=== PATIENT | female | born 1945 | race Caucasian/White ===

== ENCOUNTER 2018-12-24 17:00 | Emergency (ER) | payer MEDICARE, SELFPAY ==
[2018-12-24 17:01] VITALS: BP 127/69; PULSE 71; RESP 17; TEMP 36.7; O2SAT 99; BMI 26.6
--- NOTE | 2018-12-24 17:04 | RAD_ITS ---
STUDY: X-RAY - LEFT HIP REASON FOR EXAM: Female, 73 years old. Left hip, buttock pain TECHNIQUE: 2 views of the hip. COMPARISON: None. FINDINGS: There is a comminuted acute fracture of the left inferior pubic ramus. There are small left femoral osteophytes. There is significant right hip joint space and subchondral sclerosis within the femoral head and osteophyte formation. There are no fractures of either hip. Normal femoral head, neck, intertrochanteric region and visualized proximal femur. Normal acetabulum. Normal hip joint. Normal visualized superior and inferior pubic rami and ischial tuberosities. RAD/Hip Min 2 Views (Portable) IMPRESSION: Acute comminuted fracture left inferior pubic ramus Mild osteoarthrosis left hip no acute fractures Significant osteoarthrosis right hip, subchondral sclerosis femoral head degenerative, and/or AVN, further evaluation with MRI could be performed Electronically Signed: Jose Elias Escalona, at 17:51 EST Tel , Service support ,
--- NOTE | 2018-12-24 18:19 | ED.VISSUMM ---
- ER Visit Summary Date of Service: 12/24/18 Chief Complaint: Fall History of Present Illness: The patient is a 73 F who sees Varsha Armstrong. She reports that at work today rug slipped out from under her and she fell onto her left side. She reports he has left hip pain is 10-10 severity. Increased with movement. She denies any blow to the head or loss of consciousness. No neck, back, shoulder, wrist, or hip pain on the right. Physical Examination: Vitals: Stable. Afebrile. Neck: No vertebral tenderness. Full ROM without difficulty. Cleared by NEXUS criteria. Back: No vertebral tenderness. General: A&O x 3. NAD. Cardiovascular exam: Regular rate and rhythm, no murmur, rub or gallop. Respiratory exam: Chest nontender. No crepitus. Clear to auscultation bilaterally. No wheezes or stridor. Abdominal exam: Soft, nontender, nondistended, normal bowel sounds. No pain in RUQ or LUQ specifically. No peritoneal signs. Extremity: Mild tenderness palpation over the left greater trochanter. Moderate to palpation in the left inguinal region. She does have pain with internal/external rotation of her hip. Test Results: Left hip x-ray shows a inferior pubic ramus fracture on the left. There is no femoral neck fracture. Emergency Department Course and Treatment: Patient was treated with [place] and crutches. She is resting comfortably. Treatment Plan: Patient will be discharged with crutches, [place], and Colace. Weightbearing as tolerated. Follow-up with Dr. Amaro in 1 week for another exam. Return to the emergency department for any worsening symptoms. Disposition: To home in improved and stable condition. Impression: 1. Fall. 2. Left inferior pubic ramus fracture. This note was generated with [employer] dictation software. It may contain incorrect words, spelling, and punctuation that were not noted in review of the chart prior to signing ED Disposition - Plan for ED Patient: Disposition: Home or Assisted Living Instructions: ED Fx Pelvis Prescriptions: Hydrocodone Bitart/Apap 5-325 [[place] 5MG-325MG] 1 tablet PO Q6H PRN PRN 3 Days #20 tablet PRN Reason: Pain Docusate Sodium [Colace] 100 mg PO DAILY #20 capsule Referrals: Sebastien Amaro DO [STAFF PHYSICIAN] - 1 Week Additional Instructions: You broke your left inferior pubic ramus.
[2018-12-24] MEDS: HYDROcodone Bitartrate/Apap 5/325 Tablet PO (19:08)
== END 2018-12-24 19:21 | disposition home or self-care (01) ==
LOC: ED 18:38
PROVIDERS: Emergency Provider Emergency Medicine; Family Provider Nurse Practitioner Primary Care; PCP Nurse Practitioner Primary Care
DX: S32.592A Other specified fracture of left pubis, initial encounter for closed fracture (principal); W18.39XA Other fall on same level, initial encounter; Y93.9 Activity, unspecified; Y92.9 Unspecified place or not applicable; Y99.0 Civilian activity done for income or pay
CPT/HCPCS: 73502; 99283

== ENCOUNTER → 2024-07-19 | Outpatient (CLI) | payer MEDICARE, SELFPAY ==
--- NOTE | 2024-07-19 11:50 | RAD_ITS ---
EXAM: XR RIGHT HIP WITH PELVIS WHEN PERFORMED, 2 OR 3 VIEWS CLINICAL INDICATION: Hip pain. TECHNIQUE: Two or three views of the right hip with pelvis when performed. COMPARISON: 12/24/2018. FINDINGS: BONES/JOINTS: Severe right and mild left hip joint arthrosis, progressed since prior examination particularly on the right. There is right hip joint space narrowing and subcortical cystic changes as well as cortical sclerosis and aspherical morphology. Degenerative changes in the lower lumbar spine and bilateral SI joints. Healed left inferior pubic ramus fracture correlating with prior examination. No widening of the pubic symphysis. SOFT TISSUES: No significant abnormality. No soft tissue swelling or gas. RAD/HIP, UNI W/ Pelvis 2-3 Views IMPRESSION: 1. Severe right and mild left hip joint arthrosis, progressed since prior examination particularly on the right. Cannot exclude associated AVN. 2. Healed left inferior pubic ramus fracture correlating with prior examination. Electronically Signed: Sina Xie DO at 22:05 EDT ,
== END | disposition home or self-care (01) ==
PROVIDERS: PCP Nurse Practitioner Primary Care; Referring Provider Chiropractor; Visit Provider Chiropractor
DX: S76.011A Strain of muscle, fascia and tendon of right hip, initial encounter (principal)
CPT/HCPCS: 73502

== ENCOUNTER 2024-09-16 06:38 | Day surgery (SDC) | payer MEDICARE, SELFPAY ==
--- NOTE | 2024-08-20 12:29 | EKG12_ITS ---
Test Reason : PREOP Blood Pressure : / mmHG Vent. Rate : 067 BPM Atrial Rate : 067 BPM P-R Int : 154 ms QRS Dur : 118 ms QT Int : 440 ms P-R-T Axes : 073 -26 061 degrees QTc Int : 464 ms Normal sinus rhythm Septal infarct , age undetermined Abnormal ECG Confirmed by CAROLEE VAN, TOSHIA ([id number]), subeditor CARLY BUSTOS ([id number]) on 08/21/2024 10:11:03 AM Referred By: Henok Baldwin Confirmed By:TOSHIA ZARCO MD
[2024-08-20 13:20] LABS: Absolute Lymphocyte Count 1.52 X10^3/uL (0.83-4.51); Basophil# 0.06 X10^3/uL; Basophil% 0.8 % (0-1); Eosinophil# 0.13 X10^3/uL; Eosinophils% 1.8 % (0-5); Hematocrit 37.8 % (37-47); Hemoglobin 12.2 g/dL (12.0-15.0); Lymphocyte # 1.52 X10^3/ul (0.83-4.51); Mean Corp Hgb Conc 32.3 g/dL (32-36); Mean Corpuscular Hgb 30.2 pg (27.0-32.0); Mean Corpuscular Volume 93.6 fL (81-99); Mean Platelet Vol. 9.2 fl (6.2-12.0); Monocyte# 0.55 X10^3/uL; Monocyte% 7.6 % (0-10); NRBC Flagged by Analyzer 0 % (0-5); Neutrophil # 4.96 X10^3/uL (2.7-7.7); Neutrophil % 68.5 % (47-70); Platelet Count 315 K/mm3 (150-450); RBC Distribution Width CV 13.5 % (11.6-14.6); RBC Distribution Width SD 46.4 fl (35.1-43.9); Red Blood Count 4.04 M/mm3 (4.2-5.4); White Blood Count 7.2 K/mm3 (4.4-11.0)
[2024-08-20 14:00] LABS: Albumin, Serum 3.6 g/dL (3.2-5.0); Anion Gap 4 (5-15); BUN 17 mg/dL (7-18); BUN/Creat Ratio 20.1 RATIO (10-20); Calcium,Total 9.1 mg/dL (8.5-10.1); Chloride 111 mmol/L (98-107); Creatinine, Serum 0.84 mg/dL (0.55-1.02); EST Glomerular Filtration Rate 69 mL/min (>60); Est Glom Filt Rate - Afr Amer 84 mL/min (>60); Glucose 76 mg/dL (74-106); Potassium 4.3 mmol/L (3.5-5.1); Sodium Level 142 mmol/L (136-145)
[2024-08-20 14:04] LABS: Magnesium 2.3 mg/dL (1.6-2.6)
[2024-09-16] VITALS (11 sets, daily range): BP systolic 108–130; BP diastolic 64–74; PULSE 69–109; RESP 12–16; TEMP 36.1–37.2; O2SAT 96–100; BMI 27.2
--- NOTE | 2024-09-16 | HIP_PTH ---
PATIENT: RUFUS MARTINEZ LOC: [facility] [place] U#:[id number] AGE/SX: 79/F ROOM: RE09/16/[address]: Dr. Henok Baldwin DO : 1945 BED: DIS: 09/16/2024 SPEC #: [id number] RECD: 09/16/24 13:33 STATUS: RACHEL ROCKY #: [id number] CL: 09/16/24 00:[address]: Henok Baldwin DEPT: SURGICAL PATHOLOGY RECD BY: Frank Peña ENTERED: 09/16/24 13:34 SP TYPE: TOTAL HIP OTHR DR: MD Varsha Means, CYLINDER MACHINE OPERATOR-C Tissues: Hip, NOS Procedures: Decalcification bone/plaque Surgery Specimen Level IV HEADER OPERATION: Robotic assisted right total hip arthroplasty PRE-OP DIAGNOSIS: Severe osteoarthritis TISSUE SUBMITTED: Right hip bone and tissue MICROSCOPIC DIAGNOSIS Right hip bone and soft tissue, total hip replacement/resection: Femoral head with severe degenerative osteoarthritic changes. Fragments of fibroadipose tissue and fibroconnective tissue. ARIC: 09/19/2024 MICROSCOPIC DESCRIPTION Slides are reviewed. GROSS DESCRIPTION Received is one container labeled with the patient's name and designated bone and soft tissue right hip. The specimen consists of a martinez femoral head with portion of femoral neck. The femoral head measures 4.0 x 4.5 x 4.0 cm and portion of femoral neck measures 0.7 cm in greatest dimension. The articular surface displays prominent osteophyte formation, eburnation and bone erosion. Also present in the specimen container are multiple irregular fragments of bone reamings and pink-yellow soft tissue measuring in aggregate 7.0 x 6.0 x 1.5 cm. Clinical Biochemical Geneticist sections are submitted in three cassettes as follows: 1 - bone reamings, 2 &3- femoral head after decalcification. / ARIC. 09/16/2024 TC: 5 CPT: 44678, 87250
--- NOTE | 2024-09-16 08:04 | PRE.ANES_ITS ---
ASA Classification* ASA Classification ASA Classification: 2 Assessment & Plan Anesthesia* Anesthesia Assessment Anesthesia Assessment: Discussed sedation and/or anesthesia options, risks, benefits, and alternatives with patient/parents/legal guardian/POA. Questions invited. The patient/parents/legal guardian/POA seems to understand and agrees to proceed with anesthesia plan. Reviewed the physical assessment, medical history, allergy history and patient home medications list prior to surgery/procedure/anesthetic and documented any changes. Performed airway and anesthesia risk assessments. Anesthesia Type Anesthesia Type: Spinal Anesthesia Focused Assessment* Airway Assessment Mouth opens: >3 cm Mallampati Score: II Focused Labs Anesthesia Preop lab: CBC WBC 7.2 K/mm3 (4.4-11.0) 08/20/24 12:59 RBC 4.04 M/mm3 (4.2-5.4) L 08/20/24 12:59 Hgb 12.2 g/dL (12.0-15.0) 08/20/24 12:59 Hct 37.8 % (37-47) 08/20/24 12:59 Plt Count 315 K/mm3 (150-450) 08/20/24 12:59 CHEMISTRY Potassium 4.3 mmol/L (3.5-5.1) 08/20/24 12:59 Sodium 142 mmol/L (136-145) 08/20/24 12:59 Magnesium 2.3 mg/dL (1.6-2.6) 08/20/24 12:59 BUN 17 mg/dL (7-18) 08/20/24 12:59 Creatinine 0.84 mg/dL (0.55-1.02) 08/20/24 12:59 Glucose 76 mg/dL (74-106) 08/20/24 12:59 COAG Pre-Assessment Diagnosis/Proposed Procedure Planned Operative Procedure(s): ROBOTIC ASSISTED RIGHT TOTAL HIP ARTHROPLASTY, ERAS Anesthesia History Anesthesia History - director of annual giving: Anesthesia History - director of annual giving Hx Hospitalization No 08/20/24 09:05 Any Problems With Anesthesia No 08/20/24 09:05 Cholinesterase deficiency No 08/20/24 09:05 You/Your Family Experience No 08/20/24 09:05 fever (hyperthermia) with Relationship Recent Exposure to Contagious Disease Does patient have nerve No 08/20/24 09:05 stimulator Patient instructed to have device shut off --Does patient have Pacemaker or ICD? When Was Last Pacemaker Check QUESTION #4 FULL TEXT: You/Your Family Experience fever (hyperthermia) with Anesthesia Last Oral Intake Last Oral intake: Last Oral Intake NPO since Meds taken in AM with sips of water? Meds patient instructed to take am of surgery PONV PONV - director of annual giving: PONV - director of annual giving Female Yes 08/20/24 09:05 HX of Motion Sickness No 08/20/24 09:05 HX of N/V After Surgery No 08/20/24 09:05 Non-Smoker Yes 08/20/24 09:05 Duration of Surgery greater Yes 08/20/24 09:05 than 60 minutes Number of Risk Factors 3 08/20/24 09:05 PONV Score Moderate Risk 08/20/24 09:05 Respiratory Assessment Respiratory Assessment - director of annual giving: Respiratory Tract Infection Hx - director of annual giving Hx Respiratory Tract Infection No 08/20/24 09:05 STOP Sleep Apnea STOP Sleep Apnea - director of annual giving: STOP Sleep Apnea - director of annual giving Hx Hypertension Yes: CONTROLLED ON MED 08/20/24 09:05 Hx Sleep Apnea No 08/20/24 09:05 CPAP BIPAP Do you snore loudly (louder No 08/20/24 09:05 than talking or can be heard Do you often feel tired/ No 08/20/24 09:05 fatigued/ sleepy during daytime? Has anyone observed you stop No 08/20/24 09:05 breathing during sleep? STOP Results Negative 08/20/24 09:05 QUESTION #5 FULL TEXT : Do you snore loudly (louder than talking or can be heard through closed doors)? Tobacco Use History Tobacco Use History - director of annual giving: Tobacco Use History - director of annual giving Tobacco Use Smoking Status Never smoker 08/20/24 09:05 Hx Tobacco Use No 08/20/24 09:05 Years Smoking Packs Smoked per Day Smoking Cessation Date was within the last 15 years Hx Smoking Cessation Date Hx Smoking Cessation Counseling Hematologic Medial History Hematologic Hx - director of annual giving: Hematologic Medical Hx - identity access management architect Hx of Blood Transfusion No 08/20/24 09:05 Hx of Transfusion in last 3 No 08/20/24 09:05 Months Date of Last Transfusion (if within last 3 months) Ever experience any problems No 08/20/24 09:05 with transfusion(s)? Specify any problems Hx of Preganancy in last 3 No 08/20/24 09:05 Months Nurse Filling Out Transfusion VCHRISTIN 08/20/24 09:05 & Questions: Date: 08/20/24 08/20/24 09:05 Time: 09:07 08/20/24 09:05 Patient unable to answer at this time (ie. confused, unrespo /Reproduction History /Reproductive History - director of annual giving: /Reproductive Hx- director of annual giving Hx Now Gestational Age (in weeks): EDC: Hx Hx Para Hx Section SAB Active Medications Active Medications: Current Medications Generic Name Dose Route Start Last Admin Trade Name Freq PRN Reason Stop Dose Admin Acetaminophen 1,000 mg 09/16/24 09:45 Acetaminophen 500 Mg Tablet PO 09/16/24 09:46 X1 ONE Sodium Chloride 77.4 ml/ 0 ml 09/16/24 09:45 Ropivacaine 200 mg/ OPERA.SITE 09/16/24 09:46 Epinephrine HCl 0.6 mg/ X1 ONE Ketorolac Tromethamine 30 mg/ Morphine Sulfate 5 mg Dexamethasone Sodium Phosphate 10 mg 09/16/24 09:45 Dexamethasone 10 Mg/Ml Vial IV 09/16/24 09:46 X1 ONE Gabapentin 600 mg 09/16/24 09:45 Gabapentin 600 Mg Tablet PO 09/16/24 09:46 X1 ONE Lactated Ringer's 1,000 mls @ 999 mls/hr 09/16/24 09:45 IV 09/16/24 10:45 .Q1H1M DIDIER Tranexamic Acid 1,000 mg/ 110 mls @ 660 mls/hr 09/16/24 09:45 Sodium Chloride IV 09/16/24 09:54 X1 ONE Tranexamic Acid 1,000 mg/ 110 mls @ 660 mls/hr 09/16/24 10:45 Sodium Chloride IV 09/16/24 10:54 X1 ONE Lactated Ringer's 1,000 mls @ 125 mls/hr 09/16/24 09:45 IV 09/16/24 17:44 .Q8H DIDIER Magnesium Sulfate 1 gm/ 102 mls @ 408 mls/hr 09/16/24 09:45 Dextrose IV 09/16/24 09:59 X1 ONE Clindamycin Phosphate 900 mg in 50 mls @ 75 mls/hr 09/16/24 09:45 Cleocin IV 09/16/24 10:24 PREOP ONE Insulin Human Lispro 1 - 6 unit 09/16/24 09:45 Insulin Lispro 100 Unit/Ml Insuln.Pen SC Q4H PRN PRN BG>/= 180, SEE PROTOCOL Protocol PFSH Medical History Wears glasses Post-menopausal Alcohol use Arthritis High cholesterol Non-smoker History of pain when walking Hypertension History of echocardiogram History of stress test Home Medications ?Medication ?Instructions ?Recorded ?Last Taken ?Type atorvastatin 10 mg tablet (Lipitor) 10 mg PO DAILY 12/31/18 Unknown History escitalopram oxalate 10 mg tablet 10 mg PO DAILY 12/31/18 Unknown History (Lexapro) acetaminophen 500 mg tablet 1,000 mg PO Q6H PRN pain 08/20/24 Unknown History (Acetaminophen Extra Strength) amlodipine 2.5 mg tablet 2.5 mg PO DAILY 08/20/24 Unknown History lisinopril 20 mg tablet 20 mg PO DAILY 08/20/24 Unknown History meloxicam 15 mg tablet 15 mg PO DAILY 08/20/24 Unknown History Allergy/AdvReac Type Severity Reaction Status Date / Time Sulfa (Sulfonamide Allergy Severe Itching Verified 09/16/24 07:54 Antibiotics) Penicillins Allergy Hives Verified 09/16/24 07:54 Surgical History Hx of tonsillectomy Hx of section Hx of hysterectomy Social History Smoking Status: Never smoker Review of Systems (Anesthesia) ROS Narrative System reviewed and no additional complaints, except as documented.
[2024-09-16] MEDS: Acetaminophen 500 MG Tablet 1000 MG PO (08:23)
[2024-09-16] MEDS: Gabapentin 600 MG Tablet PO (08:23)
[2024-09-16] MEDS: Lactated Ringers 1,000 ML 999 ML IV (08:24)
[2024-09-16] MEDS: Magnesium 1 GM over 15 mins IV (08:24)
[2024-09-16 08:53] LABS: Bedside Glucose 101 mg/dL (74-106)
[2024-09-16] MEDS: Clindamycin 900 MG/50 ML BAG 75 MG IV ×2 (10:16→15:04)
[2024-09-16] MEDS: TXA 1000mg in NS100 100ml (IVPB at Incision) 660 MG IV (10:20)
[2024-09-16] MEDS: dexAMETHasone 10 MG/ML Vial IV (10:30)
[2024-09-16] MEDS: JPS (Morphine 10mg/ml) OPERA.SITE (11:38)
[2024-09-16] MEDS: TXA 1000mg in NS100 100ml (IVPB at Closure) 660 MG IV (11:40)
--- NOTE | 2024-09-16 12:15 | PCM.POST.ANE ---
Anesthesia: Postop Eval I Current Vital Signs Temperature: 97.3 F Pulse Rate: 96 Blood Pressure: 115/66 Respiratory Rate: 14 Pulse Ox: 100 Oxygen Delivery Method: Nasal Cannula Oxygen Flow Rate (L/min): 2 Assessment Airway patent: Yes Spontaneous unlabored respirations: Yes Mental status: Awake nausea: No Vomiting: No Anesthesia Complication: No Fluid Hydration Crystalloid volume administer (ml): 1,500 Total IV fluid infused: 1,500 Progress Note Anesthesia document: Postop Eval 1 completed: Yes
--- NOTE | 2024-09-16 12:18 | RAD_ITS ---
INDICATION: post op -- in PACU EXAMINATION/TECHNIQUE: X-RAY - XR Hip Unilateral with Pelvis when performed; 2-3 Views COMPARISON: Prior study dated: 07/19/2024 FINDINGS: PELVIC BONES: No displaced fracture, destructive or sclerotic lesions. Note that overlapping bowel shadows may however obscure fine detail. Sacroiliac joints are unremarkable. No widening of the pubic symphysis. HIPS: New total right hip arthroplasty. The alignment as seen on this examination is grossly unremarkable. SOFT TISSUES: Soft tissue swelling and gas consistent with recent surgery. RAD/Hip Min 2 Views (Portable) IMPRESSION: Status post right total hip arthroplasty. Electronically Signed: Nik Harkins MD at 13:02 EST ,
--- NOTE | 2024-09-16 12:20 | PCM.OPRPT ---
Operative Report (Standard) Operative Information Surgery/Procedure Performed: Right total hip arthroplasty with robotic arm assistance Surgeon: Henok Baldwin Date of Procedure: 09/16/24 Procedure Start Time: 10:37 Procedure Stop Time: 12:03 Pre-Operative Diagnosis: Right hip osteoarthritis Post-Operative Diagnosis: Right hip osteoarthritis Select all DRAINS/GRAFTS/IMPLANTS that apply: None (See dictated operative report below) Type of Anesthesia: MAC and Spinal Estimated Blood Loss: 100 cc Fluids Replaced: Per anesthesia record Specimen collected: Yes Description of specimen(s) removed: Right femoral head Description of surgery: Preoperative diagnosis: Right hip primary osteoarthritis Postoperative diagnosis: Right hip primary osteoarthritis Procedure: Robotic assisted right total hip arthroplasty Surgeon: Henok Baldwin DO Office Electrician: Heather Edge PA-C Anesthesia: General endotracheal Anesthesiologist: Dr. Basurto Complications: None apparent Drains: None Estimated blood loss: 100 cc Urinary output: none recorded IV fluids: Per anesthesia record Specimens: Right femoral head Surgical implants: Marie insignia high offset hip stem size #4, Biolox delta ceramic V 40 femoral head 36 mm outer diameter +2.5 mm neck length, Marie Trident X3 polyethylene insert, Trident 2 TriTanium cluster hole acetabular shell 48 mm diameter, 6.5 mm low-profile hexhead screw 25 mm length Indications: This is an 79-year-old female seen in the outpatient setting for right hip pain. X-rays revealed severe right hip osteoarthritis. She failed oral [id number] analgesics including NSAIDs and Tylenol, activity modification. I recommended surgical intervention the form of right total hip arthroplasty. I reviewed the procedure with the patient, its risk, benefits, alternatives. Risks included but were not limited to bleeding, infection, loss of life or limb, risk of anesthesia, neurovascular injury, persistent pain, instability, need for additional surgery, failure of orthopedic hardware, loosening, osteolysis, need for assistive devices long-term, leg length discrepancy. Patient expressed understanding wish to proceed with surgery. Description of procedure: I greeted the patient in same-day surgery holding area the day of surgery. She was identified by name, medical record number, and date of . All questions were answered to patient satisfaction. The operative extremity was marked with a surgical marker. Informed consent was confirmed with the patient. Patient underwent spinal anesthetic in the PACU prior to the procedure. At time of her procedure, patient brought the operative suite and positioned supine initially on a standard operating table. Gentle MAC anesthesia was administered. Patient was then positioned in a lateral decubitus position with the right side up. An axillary roll was placed under the patient's left axilla. The left fibular head was free. We then prepped and draped the right lower extremity in normal, sterile orthopedic fashion. Prior to the procedure, the [facility] plan was reviewed and appeared appropriate based on the patient's CT scan and anatomy. We performed a timeout with all parties in attendance in agreement with the side, site, and operation to be performed. No concerns were voiced and would like to proceed. 1 g TXA IV as well as 900 mg Cleocin was administered prior to the incision by anesthesia staff. 1 g TXA IV was administered at time of closure additionally. I first elected to place our pelvic array with a curvilinear incision over the iliac crest just posterior to the ASIS. I bluntly dissected down the level of the periosteum. I then drilled 3 intracortical pins with excellent cortical purchase. Pelvic array was then assembled and positioned appropriately. I then turned my attention to the hip. A standard posterior lateral incision was made curvilinear over the posterior lateral hip, centered on the tip of the greater trochanter. Full-thickness skin incision was made, approximately 12 cm in length. I sharply dissected down the level of the fascia richard. Fascia richard was then incised in line with the incision. I bluntly dissected through the raphae of the gluteus princess. Femoral checkpoint was placed at this point. We then registered her femoral anatomy prior to dislocating the hip. I then internally rotated the hip. Limited gluteal bursectomy was performed to identify the short external rotators. A Cobra retractor was placed in his gluteus medius. Short external rotators were taken down with Bovie cautery and tagged for later repair with #2 Ethibond suture. This identified the underlying capsule. A hockey-stick shaped capsulotomy was made over the femoral neck carried posteriorly to the acetabular labrum. Labrum was released and the hip was dislocated. I then marked a standard femoral neck cut 1 fingerbreadth above the lesser trochanter. Sagittal saw was used to carefully cut the femoral neck. Femoral head was removed and examined and appeared benign. It was sent to pathology per hospital policy. I then turned my attention to the acetabulum. Cobra retractors were placed anterior and posteriorly. Self-retaining retractor was placed superiorly. Acetabular labrum was excised with a long handled knife. Acetabular pulmonary was excised with Bovie cautery. Hemostasis was excellent at this point. I then registered the acetabulum with the [employer] robot successfully. I then brought in the Christian robot with the acetabular reaming arm to a size 48. This was reamed and the planned position to the planned depth. Reamer was then removed. There was excellent bleeding bone at the base and excellent remaining anterior posterior carlson of the acetabulum. 48mm acetabular component was selected for and attached to the major assembly lineman arm of the robot. I placed the acetabular component near planned position before attaching to the robot. The robot then held the cuff in position while I impacted it to an appropriate depth. The acetabular cup was then removed from the robotic arm. It had excellent rim fit. I then selected a standard polyethylene liner and impacted this per consulting engineer recommendations. I then turned my attention to the femur. Box chisel was then utilized to gain access to the femoral canal. Canal finder was placed. Sequential broaches were used and press-fit manner. A final size 4 achieved excellent vertical and rotational stability. We then trialed with a high offset hip stem as templated. A 0 and +2.5 mm neck length were trialed. The +2. 5 mm neck achieved greater stability as well as reapproximation of leg lengths. Trials were then removed. A 3-minute sterile dilute Betadine soak was performed. The wound was then copiously irrigated with normal saline solution. A size 4 stem was then impacted with excellent fixation. Final head was then impacted over clean, dry Frias taper neck. Final reduction was performed. A posterior capsular repair was performed with #2 Ethibond suture and bone tunnels, as well as the short external rotator repair. Femoral checkpoint was removed. Pelvic array pins were removed. IT band was closed watertight with #1 strata fix suture. Deeper fascial layers were closed with 0 Vicryl suture in interrupted fashion. Subcutaneous layers were reapproximated with 2-0 Vicryl suture and skin reapproximated with running subcuticular 3?0 strata fix and skin glue. Pelvic array incision was closed with buried 2-0 Vicryl suture and skin glue.. A silver dressing was applied. Patient tolerated procedure well without complication. He was positioned back in the supine position on his hospital bed. He was transferred to PACU in stable condition. A pillow was placed between the patient's leg to be present while she is in bed. Need for skilled undertaker assistant: Heather Edge PA-C was critical to the outcome of the case. During the course of the procedure the physician undertaker assistant played a vital role. Her intimate knowledge of my steps in the procedure aided in safe and expedient completion of the procedure. The PA played a vital role in positioning particularly in obtaining the appropriate positioning. The PA was also vital in the retraction of soft tissues during the exposure and projecting vital structures. The PA was also vital and protecting soft tissues during times of bony cuts. She also played a vital role in closure with my direct supervision. The PA was also important during reduction and dislocation of the joint and trials intraoperatively. Post Operative Plan: Plan for same-day discharge after meeting same-day surgery criteria. Physical therapy to start as an outpatient in 2 days which has been scheduled. Weightbearing: Weightbearing as tolerated right lower extremity, posterior hip precautions. Pillows between legs while in bed Antibiotics: Cleocin 900 mg, additional dose prior to discharge DVT Prophylaxis: Aspirin 81 mg twice daily to start tomorrow [place]: None Dressing: Maintain silver dressing x 5 days X-Rays: PACU x-rays were reviewed demonstrated well-positioned right total hip arthroplasty implant. Follow-up 2-week x-rays in the office. Follow-up: 2 weeks in my office as scheduled Surgical Findings: Severe right hip osteoarthritis. Stable hip following final reduction. Wharf Tender Head installation technician: Yes Office Electrician: Heather Edge Tasks completed by presser first: Opening & closing, Implanting device, Hemostasis: Electrocautery and Retracting Complications Complications: No Admit VTE Documentation VTE Present on Admission: No VTE Mechan Device Prophylaxis: SCD's and Thigh High NEIDA Hose VTE Pharm Prophylaxis ordered?: Yes
--- NOTE | 2024-09-16 12:41 | POSTOPAN2_ITS ---
Anesthesia Postop Eval I Sum Postop Eval Completion status Anesthesia document: Postop Eval 1 completed: Yes Anesthesia Postop Eval I Summary Anesthesia Postop Eval I Summary: Anesthesia Postop Eval I: Assessment Summary Airway patent Yes 09/16/24 12:17 ELECTRIC DEICER [email or web address] Spontaneous unlabored Yes 09/16/24 12:17 ELECTRIC DEICER [email or web address] respirations Mental status Awake 09/16/24 12:17 ELECTRIC DEICER [email or web address] nausea No 09/16/24 12:17 ELECTRIC DEICER [email or web address].[email or web address] Vomiting No 09/16/24 12:17 ELECTRIC DEICER [email or web address] Anesthesia Postop Eval I: Fluid Summary Crystalloid volume administer 1,500 09/16/24 12:17 ELECTRIC DEICER [email or web address].[email or web address] (ml) Colloids volume administered ( ml) Blood Product volume administered (ml) Total IV fluid infused 1,500 09/16/24 12:17 ELECTRIC DEICER [email or web address] Anesthesia Postop Eval I: Summary Notes Anesthesia Complication No 09/16/24 12:17 ELECTRIC DEICER [email or web address] Anesthesia Complication Comment: Post-operative progress note Anesthesia: Postop Eval II Evaluation Mental status: Awake Pain Level: 0 nausea: No Vomiting: No
--- NOTE | 2024-09-16 12:41 | PCM.POSTANE2 ---
Anesthesia Postop Eval I Sum Postop Eval Completion status Anesthesia document: Postop Eval 1 completed: Yes Anesthesia Postop Eval I Summary Anesthesia Postop Eval I Summary: Anesthesia Postop Eval I: Assessment Summary Airway patent Yes 09/16/24 12:17 INTERNAL MEDICINE VETERINARY [email or web address] Spontaneous unlabored Yes 09/16/24 12:17 INTERNAL MEDICINE VETERINARY TECHNICIAN.[email or web address] respirations Mental status Awake 09/16/24 12:17 INTERNAL MEDICINE VETERINARY [email or web address].[email or web address] nausea No 09/16/24 12:17 INTERNAL MEDICINE VETERINARY TECHNICIAN.[email or web address] Vomiting No 09/16/24 12:17 INTERNAL MEDICINE VETERINARY [email or web address].[email or web address] Anesthesia Postop Eval I: Fluid Summary Crystalloid volume administer 1,500 09/16/24 12:17 INTERNAL MEDICINE VETERINARY TECHNICIAN.[email or web address] (ml) Colloids volume administered ( ml) Blood Product volume administered (ml) Total IV fluid infused 1,500 09/16/24 12:17 INTERNAL MEDICINE VETERINARY TECHNICIAN.[email or web address] Anesthesia Postop Eval I: Summary Notes Anesthesia Complication No 09/16/24 12:17 INTERNAL MEDICINE VETERINARY TECHNICIAN.[email or web address] Anesthesia Complication Comment: Post-operative progress note Anesthesia: Postop Eval II Evaluation Mental status: Awake Pain Level: 0 nausea: No Vomiting: No
[2024-09-16] MEDS: Lactated Ringers 1,000 ML 125 ML IV (13:22)
== END 2024-09-16 17:04 | disposition home or self-care (01) ==
LOC: SDC 06:39 → AC 06:40
PROVIDERS: Anesthesiology; PCP Nurse Practitioner Primary Care; Referring Provider Student in an Organized Health Care Education/Training Program; Visit Provider Student in an Organized Health Care Education/Training Program
PROC: 8E0Y0CZ Robotic Assisted Procedure of Lower Extremity, Open Approach (ICD-10-PCS; CPT 27130; principal; 2024-09-16 09:15)
DX: M16.11 Unilateral primary osteoarthritis, right hip (principal); F32.A Depression, unspecified; K21.9 Gastro-esophageal reflux disease without esophagitis; I10 Essential (primary) hypertension; E78.00 Pure hypercholesterolemia, unspecified; Z79.899 Other long term (current) drug therapy
CPT/HCPCS: 27130; S2900; 01214; 36415; 73502; 80048; 82040; 82962; 83735; 85025; 87081; 88305; 88311; 93005; 97162; C1713; C1776; J7120; J2405; J3475